=== PATIENT | male | born 1980 | race Caucasian/White ===

== ENCOUNTER 2023-09-01 18:38 | Inpatient (IN) | payer OTHER ==
[2023-09-01 20:42] VITALS: BMI 33.0
[2023-09-01] MEDS ORDERED: NALOXONE (NARCAN) HCL 4 MG/0.1 ML SPRAY NS PRN (22:39)
[2023-09-01] MEDS ORDERED: guaiFENesin 600 MG TABLET.ER (FP) PO PRN (22:39)
[2023-09-01] MEDS ORDERED: BENZOCAINE/MENTHOL (CHLORASEPTIC ) LOZENGE MM PRN (22:39)
[2023-09-01] MEDS ORDERED: NALOXONE HCL 0.4 MG/ML VIAL IM PRN (22:39)
[2023-09-01] MEDS ORDERED: ACETAMINOPHEN 325 MG TABLET (FP) PO PRN (22:39)
[2023-09-01] MEDS ORDERED: MAG HYDROX/AL HYDROX/SIMETH 30 ML UNIT-DOSE CUP PO PRN (22:39)
[2023-09-01] MEDS ORDERED: IBUPROFEN 400 MG TABLET (FP) PO PRN (22:39)
[2023-09-01] MEDS ORDERED: NICOTINE POLACRILEX 2 MG GUM BUC PRN (22:39)
[2023-09-01] MEDS ORDERED: BENZONATATE 200 MG CAPSULE PO PRN (22:39)
[2023-09-01] MEDS ORDERED: POLYETHYLENE GLYCOL (HEALTHYLAX) 3350 17 GM PACKET PO PRN (22:39)
[2023-09-01] MEDS ORDERED: MAGNESIUM HYDROX 2400MG/30ML ORAL SUSPENSION 30 ML CUP PO PRN (22:39)
[2023-09-01] MEDS ORDERED: DICYCLOMINE HCL 10 MG CAPSULE PO PRN (22:39)
[2023-09-01] MEDS ORDERED: LOPERAMIDE HCL 2 MG CAPSULE PO PRN (22:39)
[2023-09-01] MEDS ORDERED: BISMUTH SUBSALICYLATE 524 MG/30 ML PO PRN (22:39)
[2023-09-01] MEDS ORDERED: IBUPROFEN 600 MG TABLET (FP) PO PRN (22:39)
[2023-09-01] MEDS ORDERED: methaDONE HCL 10 MG TABLET (FOR DETOX USE ONLY) ONE (23:05)
[2023-09-01] MEDS: methaDONE HCL 10 MG TABLET (FOR DETOX USE ONLY) PO ONE (23:09)
[2023-09-01] MEDS: cloNIDine HCL 0.1 MG TABLET PO PRN (23:53)
[2023-09-01] MEDS: METHOCARBAMOL 500 MG TABLET PO PRN (23:53)
[2023-09-01] MEDS: hydrOXYzine PAMOATE 25 MG CAPSULE (FP) PO PRN (23:53)
[2023-09-02] MEDS: PRENATAL VITAMINS W/ FOLIC ACID TABLET (FP) PO SCH (09:50)
[2023-09-02] MEDS: NICOTINE 21 MG/24 HOURS TOPICAL PATCH TD SCH (09:51)
[2023-09-02] MEDS: MELATONIN 5 MG TABLETS PO SCH (21:31)
[2023-09-02] MEDS: QUEtiapine FUMARATE 100 MG TABLET (FP) PO SCH (21:31)
[2023-09-02] MEDS: THIAMINE 100 MG TABLET PO SCH (21:31)
[2023-09-03] MEDS: methaDONE HCL 10 MG TABLET (FOR DETOX USE ONLY) PO ONE (09:23)
[2023-09-04] MEDS: cloNIDine HCL 0.1 MG TABLET PO ONE (09:01)
[2023-09-04] MEDS: amLODIPine BESYLATE 10 MG TABLET (FP) PO SCH (09:10)
[2023-09-04] MEDS: BICTEGRAV/EMTRICIT/TENOFOV (BIKTARVY) 50-200-25 MG TABLET PO SCH (09:10)
[2023-09-04] MEDS: ONDANSETRON *ODT* 4 MG TABLET SL PRN (09:35)
[2023-09-04] MEDS ORDERED: SULFAMETHOXAZOLE/TRIMETHOPRIM 800MG/160MG D.S. TABLET PO SCH (10:18)
[2023-09-04] MEDS: SULFAMETHOXAZOLE/TRIMETHOPRIM 800MG/160MG D.S. TABLET PO SCH ×2 (10:26→11:04)
[2023-09-04] MEDS: PANTOPRAZOLE 40 MG TABLET PO SCH (13:59)
[2023-09-04] MEDS: FINASTERIDE 5 MG TABLET (FP) PO SCH (15:10)
[2023-09-05] MEDS: methaDONE HCL 10 MG TABLET (FOR DETOX USE ONLY) PO ONE (09:10)
[2023-09-06 12:23] LABS: HEMATOCRIT 47.8 % (35.4-49); HEMOGLOBIN 16.1 GM/dL (11.7-16.9); MCH 29.6 pg (25.7-33.7); MCHC 33.7 g/dl (32.0-35.9); MEAN CELL VOLUME 87.9 fl (80-96); MEAN PLT VOLUME 9.9 fl (7.5-11.1); PLATELET COUNT 387 10^3/uL (134-434); RBC 5.43 M/mm3 (4.00-5.60); RDW 14.1 % (11.9-15.9); WHITE BLOOD COUNT 7.3 K/mm3 (4.0-10.0)
[2023-09-06 14:03] LABS: CHLORIDE 110 mmol/L (98-107); POTASSIUM 3.8 mmol/L (3.5-5.1); SODIUM 140 mmol/L (136-145)
[2023-09-06 14:14] LABS: CALCIUM 10.2 mg/dL (8.5-10.1)
[2023-09-06 14:15] LABS: ALBUMIN 4.7 g/dl (3.4-5.0); BLOOD UREA NITROGEN 20.8 mg/dL (7-18); GLUCOSE,RANDOM 137 mg/dL (74-106)
[2023-09-06 14:17] LABS: SGPT/ALT 49 U/L (13-61)
[2023-09-06 14:18] LABS: SGOT/AST 20 U/L (15-37)
[2023-09-06 14:19] LABS: ALK PHOS 155 U/L (45-117); TOT PROT 9.3 g/dl (6.4-8.2)
[2023-09-06 14:20] LABS: BILIRUBIN,TOTAL 0.5 mg/dL (0.2-1)
[2023-09-06 14:23] LABS: ANION GAP 5 mmol/L (4-13); CO2 25 mmol/L (21-32); CREATININE 1.1 mg/dL (0.55-1.3)
[2023-09-07 09:00] VITALS: RESP 17
[2023-09-07 12:34] VITALS: BP 123/83; PULSE 90; TEMP 98.9
== END 2023-09-07 14:40 | disposition home or self-care (01) | DRG 773 ==
LOC: YASAS 18:38 → Y3N 23:07
PROVIDERS: ADMIT Allergy & Immunology; ATTEND Surgery
PROC: HZ2ZZZZ Detoxification Services for Substance Abuse Treatment (ICD-10-PCS; principal; 2023-09-01)
DX: F11.23 Opioid dependence with withdrawal (principal); F12.20 Cannabis dependence, uncomplicated; F17.210 Nicotine dependence, cigarettes, uncomplicated; F41.0 Panic disorder [episodic paroxysmal anxiety]; F41.9 Anxiety disorder, unspecified; Z21 Asymptomatic human immunodeficiency virus [HIV] infection status; G47.00 Insomnia, unspecified; I10 Essential (primary) hypertension; M54.50 Low back pain, unspecified; G89.29 Other chronic pain; N39.0 Urinary tract infection, site not specified; Z79.899 Other long term (current) drug therapy; Z62.810 Personal history of physical and sexual abuse in childhood
CPT/HCPCS: 36415; 80053; 80305; 80307; 85027; 86593; 86780; 87811; 93005; 93010; Q0162